=== PATIENT | female | born 1990 | race Hispanic/Latino ===

== ENCOUNTER 2017-03-20 22:16 | Emergency (ER) | payer SELFPAY ==
[2017-03-20 23:08] LABS: APPEARANCE,URINE Clear (CLEAR); BILIRUBIN,URINE Negative (NEGATIVE); COLOR,URINE Yellow (YELLOW); GLUCOSE, URINE (UA) Negative (NEGATIVE); KETONES,URINE Negative (NEGATIVE); LEUKOCYTE ESTERASE ,URINE Negative (NEGATIVE); NITRATE,URINE Negative (NEGATIVE); OCCULT BLOOD,URINE Negative (NEGATIVE); PROTEIN,URINE Negative (NEGATIVE)
[2017-03-20 23:10] LABS: HCG,QUAL RESULT NEGATIVE (NEGATIVE)
[2017-03-20 23:16] LABS: RAPID GROUP A STREP NEGATIVE (NEGATIVE)
== END 2017-03-20 23:39 | disposition home or self-care (01) ==
LOC: EDH 22:16
DX: H66.001 Acute suppurative otitis media without spontaneous rupture of ear drum, right ear (principal); R50.81 Fever presenting with conditions classified elsewhere
CPT/HCPCS: 81003; 81025; 87804; 87880